=== PATIENT | female | born 1990 | race Caucasian/White ===

== ENCOUNTER 2020-02-18 10:03 | Emergency (ER) | payer OTHER, SELFPAY ==
[2020-02-18 10:12] VITALS: BP 133/90; PULSE 74; RESP 14; TEMP 37.2; O2SAT 100
--- NOTE | 2020-02-18 10:30 | ED.URI ---
HPI - URI/Sore Throat General Chief Complaint: Upper Respiratory Infection Stated Complaint: sinus drainage/cough/sore throat Time Seen by Provider: 02/18/20 10:42 Source: patient and RN notes reviewed Mode of arrival: ambulatory Limitations: no limitations History of Present Illness HPI Narrative: 29-year-old female presents with concern for sore throat, rhinorrhea, nasal congestion, low-grade fever, body aches, cough. Reports she is breast-feeding her 4-month-old . Reports she has been taking Sudafed, Tylenol, ibuprofen MD elicited complaint: sore throat Related Data Allergies Allergy/AdvReac Type Severity Reaction Status Date / Time No Known Allergies Allergy Verified 02/18/20 10:39 Review of Systems Review of Systems: Narrative: CONSTITUTIONAL: Denies malaise, chills, sweats. Reports low-grade fever. EYES: Denies visual changes, redness, or discharge. ENT: Reports rhinorrhea, congestion, and sore throat. Denies sinus pain, otalgia CARDIOVASCULAR: Denies chest pain, palpitations, or edema. RESPIRATORY: Reports cough. Denies dyspnea. GASTROINTESTINAL: Denies abdominal pain, nausea, vomiting, diarrhea SKIN: Denies rash or itching. MUSCULOSKELETAL: Reports myalgia. NEUROLOGIC: Denies headache. All systems reviewed & are unremarkable except as noted in HPI and below PMFSH Comments At time of signature, agree with nursing past medical, surgical, social and family history. There is no relevant family history pertinent to the presenting complaint Exam Narrative: Exam Narrative: GENERAL: Well-appearing, well-nourished, and in no acute distress. HEAD: Normocephalic EYES: PERRLA, conjunctivae clear ENT: Nares clear, turbinates edematous and erythematous, clear discharge. Mucous membranes moist. TM pearly schultz with dull light reflex bilaterally; no tragal tenderness. Oropharynx erythematous without lesions. Tonsils enlarged and without exudate, no drooling, no hoarseness, no trismus, uvula midline. NECK: Supple. No lymphadenopathy CHEST: Clear to auscultation, breath sounds equal. No wheezing, rhonchi, rales, or stridor. No respiratory distress, speaks in full sentences. HEART: Regular rate and rhythm. No murmur heard. SKIN: Warm, dry, no rash. NEURO: Alert and oriented x3. PSYCH: Normal mood and affect Course Course Emergency Course: Patient is aware of diagnosis, understands and agrees to treatment plan. Anticipatory guidance given. Patient agrees to follow-up as directed and is aware of reasons to seek care at the emergency department. Portions of this record may have been created with voice recognition software Vital Signs Vital signs: Vital Signs Temperature 99.0 F 02/18/20 10:12 Pulse Rate 74 02/18/20 10:12 Respiratory Rate 14 02/18/20 10:12 Blood Pressure 133/90 02/18/20 10:12 Pulse Oximetry 100 02/18/20 10:12 Temperature 99.0 F 02/18/20 10:12 Pulse Rate 74 02/18/20 10:12 Respiratory Rate 14 02/18/20 10:12 Blood Pressure 133/90 02/18/20 10:12 Pulse Oximetry 100 02/18/20 10:12 Reviewed. MDM - URI/Sore Throat MDM Narrative Medical decision making narrative: Differential diagnosis considered: Irving virus, strep pharyngitis, allergic rhinitis, upper respiratory tract infection, sinusitis, rhinosinusitis, nasopharyngitis. viral pharyngitis, otitis media, otitis externa, pneumonia, bronchitis, viral cough syndrome, viral syndrome, and influenza. Exam findings show no acute concerns or changes; patient is non-toxic appearing and is in no distress. Patient is appropriate for outpatient treatment and follow-up. Lab Data Attestation: I reviewed the patient's lab results. Critical Care Time Critical Care Time Critical Care Time: No Discharge Plan Discharge Clinical Impression: Upper respiratory infection Qualifiers: URI type: unspecified viral URI Qualified Code(s): J06.9 - Acute upper respiratory infection, unspecified Patient Disposition: Home, Self-Care Condition:
== END 2020-02-18 10:58 | disposition home or self-care (01) ==
PROVIDERS: Emergency Provider Nurse Practitioner; PCP Emergency Medicine
DX: J06.9 Acute upper respiratory infection, unspecified (principal); Z20.828 Contact with and (suspected) exposure to other viral communicable diseases; J45.909 Unspecified asthma, uncomplicated
CPT/HCPCS: 87081; 87880; 99213; G0463

== ENCOUNTER 2020-02-19 12:09 | Emergency (ER) | payer OTHER, SELFPAY ==
[2020-02-19 12:12] VITALS: BP 132/84; PULSE 78; RESP 18; TEMP 37.3; O2SAT 100
--- NOTE | 2020-02-19 12:20 | ED.DENTAL ---
HPI - Dental/Oral General Chief complaint: Dental/Oral Stated complaint: tooth pain Time Seen by Provider: 02/19/20 12:20 Source: patient History of Present Illness HPI Narrative: Patient presents with a tooth ache in her left lower gum. Patient states she has an appointment with a dentist to have the tooth extracted. Patient states she has a nerve exposed and the dentist is aware of this. Patient states 1 month ago she was on antibiotics which did help much with the pain. Patient is afraid that she has an infection again in the lower tooth. Patient is taken Tylenol and ibuprofen on a regular basis for the pain. Patient was here yesterday and given viscous lidocaine to apply to the tooth yesterday. Patient states it does help with the pain but she feels that she needs an antibiotic to relieve her of the pain and discomfort from the tooth. MD Complaint: tooth pain Teeth map: 1. tooth swelling broken tooth Related Data Home Medications Medication Instructions Recorded Confirmed escitalopram oxalate [Lexapro] 5 mg PO DAILY 02/19/20 02/19/20 Allergies Allergy/AdvReac Type Severity Reaction Status Date / Time No Known Allergies Allergy Verified 02/18/20 10:39 Review of Systems Review of Systems: Narrative: CONSTITUTIONAL: Denies fever, chills, or sweats. EYES: Denies visual changes, redness, or discharge. ENT: Denies rhinorrhea, congestion, sore throat, or otalgia. NO FEVER. NO JAW SWELLING. NO NECK SWELLING. NO LIMITATION WITH SPEAKING OR SWALLOWING. HAS A HISTORY OF DENTAL CARIES. HAS NOT SEEN A DENTIST RECENTLY. RESPIRATORY: Denies cough or dyspnea. GASTROINTESTINAL: Denies abdominal pain, nausea, vomiting, or diarrhea. GENITOURINARY: Denies dysuria or hematuria. SKIN: Denies rash or itching. MUSCULOSKELETAL: Denies back pain, joint pain, or myalgia. NEUROLOGIC: Denies headache, numbness, or weakness. PSYCHIATRIC: Denies anxiety or depression. PMFSH Comments At time of signature, agree with nursing past medical, surgical, social and family history. There is no relevant family history pertinent to the presenting complaint Exam Narrative: Exam Narrative: GENERAL: Well-appearing, well-nourished, and in no acute distress. HEAD: Normocephalic, atraumatic. EYES: PERRLA and EOMI. ENT: Nares clear, no rhinorrhea or epistaxis. Mucous membranes moist. NO ABDULLAHI APICAL SWELLING, TOOTH TENDER TO PALPATION. NO FACIAL SWELLING. NO TRISMUS. ABLE TO OPEN MOUTH FULLY. NO NECK SWELLING OR DILLON'S ANGINA. NO ABSCESS TO BE DRAINED. no drooling, trismus, facial asymmetry or significant neck swellingNECK: Supple. CHEST: Clear to auscultation. No respiratory distress. HEART: Regular rate and rhythm. No murmur heard. Normal peripheral pulses. ABDOMEN: Soft, nontender, nondistended, normal active bowel sounds. EXTREMITIES: Normal range of motion. No edema. SKIN: Warm, dry, no rash. NEURO: No focal deficits. Alert and oriented x3. [place]ana Coma Scale Eye Opening: Spontaneous 4 [place] Coma Scale Motor: Obeys Commands 6 [place] Coma Scale Verbal: Oriented 5 [place] Coma Scale Total 15 Course Vital Signs Vital signs: Vital Signs Temperature 37.3 C 02/19/20 12:12 Pulse Rate 78 02/19/20 12:12 Respiratory Rate 18 02/19/20 12:12 Blood Pressure 132/84 02/19/20 12:12 Pulse Oximetry 100 02/19/20 12:12 Temperature 37.3 C 02/19/20 12:23 Pulse Rate 78 02/19/20 12:23 Respiratory Rate 18 02/19/20 12:23 Blood Pressure 132/84 02/19/20 12:23 Pulse Oximetry 100 02/19/20 12:23 Please KALLIE schedule a followup visit with your personal physician for further evaluation and treatment. Including recheck and discussion of your blood pressure. If your symptoms persist, change or worsen significantly before you can contact your personal physician then please, without delay, go to the emergency department for further evaluation Discharge Plan Discharge Clinical Impression: Toothache, Dental abscess Patient Dis
[2020-02-19 12:23] VITALS: BP 132/84; PULSE 78; RESP 18; TEMP 37.3; O2SAT 100
== END 2020-02-19 12:36 | disposition home or self-care (01) ==
PROVIDERS: Emergency Provider Nurse Practitioner Family; PCP Emergency Medicine
DX: K08.89 Other specified disorders of teeth and supporting structures (principal); K04.7 Periapical abscess without sinus; J45.909 Unspecified asthma, uncomplicated; F41.9 Anxiety disorder, unspecified; F32.9 Major depressive disorder, single episode, unspecified
CPT/HCPCS: 99213; G0463

== ENCOUNTER 2020-02-23 05:48 | Emergency (ER) | payer OTHER, SELFPAY ==
[2020-02-23 05:58] VITALS: BP 142/93; PULSE 84; RESP 20; TEMP 36.6; O2SAT 99
--- NOTE | 2020-02-23 06:13 | ED.DENTAL ---
HPI - Dental/Oral General Chief complaint: Dental/Oral Stated complaint: Tooth pain Source: patient History of Present Illness HPI Narrative: is a 29-year-old female that presents with a fractured left lower molar has been persistent for the last 3 months, has an appointment with a dentist in in March, was seen at [facility] few days ago and prescribed an antibiotic and told to take [id number] Tylenol. Patient has persistent pain, with no fevers, no left lower jaw swelling no gum inflammation or swelling. MD Complaint: tooth pain Teeth map: 1. Cracked/fracture to Onset (ago): month(s) Duration: constant Severity: moderate Severity scale (1-10): 8 Relieving factors: other ( antibiotic an [id number] type) Exacerbating factors: chewing and cold Context: trauma (mechanism) Related Data Home Medications Medication Instructions Recorded Confirmed escitalopram oxalate [Lexapro] 5 mg PO DAILY 02/19/20 02/23/20 1 caplet PO DAILY 02/23/20 02/23/20 Allergies Allergy/AdvReac Type Severity Reaction Status Date / Time No Known Allergies Allergy Verified 02/18/20 10:39 Review of Systems Review of Systems: All systems reviewed & are unremarkable except as noted in HPI and below PMFSH Past Medical History Medical History Pain, dental Exam Const: General: cooperative, healthy appearing, comfortable, no acute distress, well developed, alert, awake and Physically active HENMT: Head: normal to inspection General nose exam: Normal external nose present and Abnormal external nose present Face and sinus: normal facial exam Mouth: Yes Normal oral and palatal mucosa present Teeth image: 1. cracked/fractured left lower molar Eyes: General: appearance normal, both eyes and all related structures Conjunctivae: conjunctivae normal Sclera: sclerae normal Neck: Neck: normal visual inspection Lymphatic: no lymphadenopathy noted and no lymphedema noted Resp: Effort & Inspection: normal respiratory effort and able to speak in complete sentences Cardio: Jugular venous distension: no JVD GI: Inspection: normal to inspection Skin: General skin exam: normal color and no rashes or lesions noted Psych: Appearance: grossly normal and well kempt Mental Status: mental status grossly normal Affect: normal affect Course Course Emergency Course: advised patient to keep follow-up appointment with her dentist and can use [id number] Tylenol extra-strength as needed, and prescribed viscous lidocaine. Vital Signs Vital signs: Vital Signs Temperature 36.6 C 02/23/20 05:58 Pulse Rate 84 02/23/20 05:58 Respiratory Rate 20 02/23/20 05:58 Blood Pressure 142/93 H 02/23/20 05:58 Pulse Oximetry 99 02/23/20 05:58 Temperature 36.6 C 02/23/20 05:58 Pulse Rate 84 02/23/20 05:58 Respiratory Rate 20 02/23/20 05:58 Blood Pressure 142/93 H 02/23/20 05:58 Pulse Oximetry 99 02/23/20 05:58 Critical Care Time Critical Care Time Critical Care Time: No Discharge Plan Discharge Clinical Impression: Fracture of tooth Qualifiers: Encounter type: sequela Fracture type: closed Qualified Code(s): S02.5XXS - Fracture of tooth (traumatic), sequela Patient Disposition: Home, Self-Care Condition: Stable Instructions: Antibiotic Form, Toothache (ED) Additional Instructions: Take extra inked Tylenol [id number] as needed, take medicine as prescribed and follow-up with dentist as soon as possible for further evaluation and treatment. Prescriptions: New Lidocaine Viscous 2 % solution 1 applic mucous membrane QID PRN (Reason: pain) Qty: 100 RF: 0 No Action 1 caplet PO DAILY RF: 0 escitalopram oxalate [Lexapro] 5 mg Tablet 5 mg PO DAILY RF: 0 amoxicillin 875 mg tablet 875 mg PO Q12H 7 Days Qty: 14 RF: 0 Follow-up/Referrals: Joe Chu MD [Primary Care Provider] -
== END 2020-02-23 06:21 | disposition home or self-care (01) ==
PROVIDERS: Emergency Provider Emergency Medicine; PCP Emergency Medicine
DX: S02.5XXS Fracture of tooth (traumatic), sequela (principal)
CPT/HCPCS: 99283